=== PATIENT | female | born 1955 | race Caucasian/White ===

== ENCOUNTER 2016-07-20 17:09 | Emergency (ER) | payer MEDICARE, MEDICAID ==
[~2016-07-20] VITALS: Ht 165.1 cm; Wt 65.7 kg
[~2016-07-20 17:09] MED LIST: ACID1TAB7 PO; ALBU18HF INH; ALPR0.25 PO; CEFD300C2 PO; CHOLESTEROL MED; CYAN1TAB29 PO; DOCU-30 PO; DOXY100T PO; FAMO20TA7 PO; FLUT1BLS INH; GUAI200T3 PO; IPRA3AMP INH; LEVO137T2 PO; LIDO700A5 TD; LYRICA; METR500T PO; ONDA4TAB13 SL; PAIN PATCH; PRED10TA14 PO; PREG150C PO; SIMV20TA3 PO; SYNTHROID; TIOT18CA INH; TIZA; TIZA2CAP PO; TRAM50TA2 PO
[2016-07-20] MEDS ORDERED: ASPIRIN 81 MG TABLET CHEW PO ONE (18:00)
[2016-07-20] MEDS ORDERED: SODIUM CHLORIDE 0.9% 1,000ML IVBOLUS ONE (18:00)
[2016-07-20] MEDS ORDERED: SODIUM CHLORIDE FLUSH 10ML SYR IVF ONE (18:00)
[2016-07-20 18:15] LABS: HEMOGLOBIN 12.8 g/dL (11.7-16.4)
[2016-07-20 18:34] LABS: BLOOD UREA NITROGEN 16 mg/dL (7-18)
[2016-07-20] MEDS ORDERED: ASPIRIN 81 MG TABLET CHEW ONE (18:53)
[2016-07-20 19:07] LABS: PATH.CAST-FLAG NOT PRESENT; SPERM-FLAG NOT PRESENT; SRC-FLAG NOT PRESENT; XTAL-FLAG NOT PRESENT; YLC-FLAG NOT PRESENT
[2016-07-20 20:51] VITALS: BP 106/68
== END 2016-07-20 20:54 | disposition home or self-care (01) ==
LOC: ED 19:50
DX: N30.90 Cystitis, unspecified without hematuria (principal); R61 Generalized hyperhidrosis; E89.0 Postprocedural hypothyroidism; M79.7 Fibromyalgia; K21.9 Gastro-esophageal reflux disease without esophagitis; J45.909 Unspecified asthma, uncomplicated; M19.90 Unspecified osteoarthritis, unspecified site; G89.29 Other chronic pain; G62.9 Polyneuropathy, unspecified; J44.9 Chronic obstructive pulmonary disease, unspecified; E78.5 Hyperlipidemia, unspecified; Z86.73 Personal history of transient ischemic attack (TIA), and cerebral infarction without residual deficits; Z98.84 Bariatric surgery status
CPT/HCPCS: 36415; 71010; 80048; 81001; 82040; 83735; 84436; 84443; 84484; 85025; 87086; 93005; 96360; 96361; 99285; J7030